=== PATIENT | female | born 1970 | race Caucasian/White ===

== ENCOUNTER 2020-11-17 16:48 | Outpatient (REF) | payer BC, SELFPAY | END 2020-11-17 16:49 | disposition home or self-care (01) | LOC: HO.LNP 16:48 | PROVIDERS: Visit Provider Hospitalist | DX: B34.9 Viral infection, unspecified (principal); Z20.822 Contact with and (suspected) exposure to COVID-19 | CPT/HCPCS: U0003; U0005 ==

== ENCOUNTER 2022-01-02 15:04 | Outpatient (REF) | payer OTHER, SELFPAY ==
[2022-01-02 18:08] LABS: CT PCR NOT DETECTED (Not Detect.); NG PCR NOT DETECTED (Not Detect.)
[2022-01-03 09:35] LABS: BV Int Neg Control Negative (Negative); BV Int Pos Control Positive (Positive)
[2022-01-07 23:27] LABS: HPV mRNA E6/E7 rflx Not Detected (Not Detected)
== END 2022-01-02 15:05 | disposition home or self-care (01) ==
LOC: HO.LAB 15:04
PROVIDERS: Visit Provider Advanced Practice Midwife
DX: Z01.419 Encounter for gynecological examination (general) (routine) without abnormal findings (principal); Z11.51 Encounter for screening for human papillomavirus (HPV); Z11.3 Encounter for screening for infections with a predominantly sexual mode of transmission
CPT/HCPCS: 87480; 87491; 87510; 87591; 87624; 87660; 88142

== ENCOUNTER 2022-01-09 14:08 | Outpatient (REF) | payer OTHER, SELFPAY ==
--- NOTE | ~2022-01-09 | MM_ITS ---
EXAMINATION: MM SCREENING DIGITAL BREAST TOMOSYNTHESIS, BILATERAL CLINICAL INFORMATION: Screening. Asymptomatic. There is no mention and previous history of left breast biopsy. The lifetime risk of breast cancer based on the Tyrer-Cuzick Model is 7.0%. COMPARISON: Mammography: None. TECHNIQUE: Digital breast tomosynthesis is performed in both the craniocaudal and mediolateral oblique views along with computer-aided detection (CAD). Synthesized 2D images are generated from the tomosynthesis. FINDINGS: There are scattered areas of fibroglandular density (ACR BI-RADS breast composition Category b). No suspicious right breast masses or region of architectural distortion or grouping of microcalcifications identified. About the upper outer aspect of the left breast, there are 2 regions of architectural distortion for which spot compression views are recommended. MM/MM tomosynthesis screening BI IMPRESSION: Left breast density for further evaluation as described. ASSESSMENT: BI-RADS 0: Incomplete - Need Additional Imaging Evaluation . RECOMMENDATION: 1. Additional views of the left breast. 2. Targeted ultrasound if warranted after review of the additional views. 3. Radiology department staff will contact the patient for additional imaging. This patient's information was entered into a reminder system with a target due date for their next mammogram.
== END 2022-01-09 14:09 | disposition home or self-care (01) ==
LOC: HO.MAMMO 14:08
PROVIDERS: Visit Provider Advanced Practice Midwife
DX: Z12.31 Encounter for screening mammogram for malignant neoplasm of breast (principal)
CPT/HCPCS: 77063; 77067

== ENCOUNTER 2022-01-24 10:58 | Outpatient (REF) | payer OTHER, SELFPAY ==
--- NOTE | ~2022-01-24 | MM_ITS ---
EXAMINATION: MM DIAGNOSTIC DIGITAL BREAST TOMOSYNTHESIS, LEFT CLINICAL INFORMATION: Recall from screening for question of asymmetric density mid 1:00 left breast. COMPARISON: Mammography: 01/09/2022; outside mammography 05/10/2020 and 11/17/2017 ([facility]). TECHNIQUE: Digital breast tomosynthesis is performed. 2D images are generated from the tomosynthesis. The following views are obtained: Spot CC, spot MLO. FINDINGS: There are scattered areas of fibroglandular density (ACR BI-RADS breast composition Category b). Additional views show no architectural abnormality or mass or developing density from prior outside studies. There are no significant changes. Additional comparison of the recent right mammography with prior outside studies also shows no significant changes. Results are discussed with the patient at time of visit. MM/MM tomosynthesis added views L IMPRESSION: Additional views show no architectural abnormality or developing density from prior outside study. ASSESSMENT: BI-RADS 1: Negative RECOMMENDATION: Routine annual mammography screening. This patient's information was entered into a reminder system with a target due date for their next mammogram.
== END 2022-01-24 10:59 | disposition home or self-care (01) ==
LOC: HO.MAMMO 10:58
PROVIDERS: Visit Provider Advanced Practice Midwife
DX: R92.8 Other abnormal and inconclusive findings on diagnostic imaging of breast (principal)
CPT/HCPCS: 77061; 77065

== ENCOUNTER → 2023-02-19 16:00 | Outpatient (BNV) | payer OTHER, SELFPAY | PROVIDERS: PCP Nurse Practitioner Family; Visit Provider Radiology Diagnostic Radiology | DX: Z12.31 Encounter for screening mammogram for malignant neoplasm of breast (principal) | CPT/HCPCS: 77063; 77067 ==

== ENCOUNTER 2023-02-19 16:05 | Outpatient (REF) | payer OTHER, SELFPAY | END 2023-02-19 16:06 | disposition home or self-care (01) | LOC: HO.MAMMO 16:05 | PROVIDERS: PCP Nurse Practitioner Family; Visit Provider Advanced Practice Midwife | DX: Z12.31 Encounter for screening mammogram for malignant neoplasm of breast (principal) | CPT/HCPCS: 77063; 77067 ==

== ENCOUNTER 2023-04-18 14:59 | Outpatient (REF) | payer OTHER, SELFPAY ==
[2023-04-18 15:21] LABS: Hematocrit 43.2 % (37.0-47.0); Hemoglobin 14.5 g/dl (12.0-16.0); Mean Corpuscular HGB Conc 33.6 g/dl (31.0-35.0); Mean Corpuscular Hemoglobin 33.1 pg (27.0-33.0); Mean Corpuscular Volume 98.6 fL (80.0-98.0); Mean Platelet Volume 10.6 fL (9.4-12.3); Platelet Count 267 X10*3/uL (160-400); Red Blood Count 4.38 X10*6/uL (4.20-5.50); Red Cell Distribution Width 13.3 % (11.0-16.0); White Blood Count 5.5 X10*3/uL (4.8-10.8)
[2023-04-18 15:47] LABS: Alanine Aminotransferase 8 U/L (0-31); Albumin Level 4.1 g/dL (3.5-5.0); Alkaline Phosphatase 72 U/L (39-117); Anion Gap 7 (12-20); Aspartate Amino Transferase 17 U/L (5-31); Bilirubin Total 0.8 mg/dL (0.0-1.0); Blood Urea Nitrogen 12 mg/dL (9-16); Calcium 9.5 mg/dL (8.4-10.2); Carbon Dioxide 31 mmol/L (22-29); Chloride 105 mmol/L (96-108); Estimated Glomerular Filt Rate > 60; Glucose Fasting 87 mg/dL (60-99); Iron 84 mcg/dL (30-160); Percent Iron Saturation 27 % (15-50); Potassium 3.9 mmol/L (3.3-5.1); Sodium 139 mmol/L (135-145); Total Iron Binding Capacity 311 mcg/dL (228-428); Total Protein 7.2 g/dL (6.5-8.0); Unsaturated Iron Binding 227 ug/dL
== END 2023-04-18 15:00 | disposition home or self-care (01) ==
LOC: HO.LAB 14:59
PROVIDERS: Physician Assistant; PCP Nurse Practitioner Family; Visit Provider Nurse Practitioner Family
DX: F32.A Depression, unspecified (principal); R53.83 Other fatigue; D50.9 Iron deficiency anemia, unspecified
CPT/HCPCS: 36415; 80053; 83540; 84443; 85027

== ENCOUNTER 2023-05-06 15:50 | Outpatient (AMB) | payer OTHER, SELFPAY ==
[2023-05-06 15:51] VITALS: BP 140/90; PULSE 74; BMI 22.7
--- NOTE | 2023-05-06 15:51 | MHC.PC.OV ---
Vital Signs 05/06/23 15:51 Height 5 ft 3 in Weight 128 lb 0.4 oz BMI 22.7 BP 140/90 H Blood Pressure Location Lt brachial Position Sitting Pulse 74 Pulse Source Pulse Oximeter Oxygen Delivery Method Room Air Intake Visit Reasons: PHYSICAL Intake Note: Patient is here today for a physical. Marketing Project Lead Required: No Allergies No Known Allergies Allergy (Verified 05/06/23 16:06) Medication List - Last Reconciled 05/06/23 by ESTUARDO Shearer bupropion HCl (Wellbutrin XL) 300 mg PO QAM cholecalciferol (vitamin D3) 325 mcg PO QWEEK COVID-19 test specimen collect As directed docusate sodium (Colace) 100 mg PO BID PRN ibuprofen 600 mg PO Q6H PRN lactobacillus combination no.9 (Adult 50 Plus Probiotic) 4,000 mmu cells PO DAILY multivitamin 1 tab PO DAILY norethindrone acetate 5 mg PO DAILY quetiapine (Seroquel) 25 mg PO BEDTIME PRN tranexamic acid 1,300 mg PO TID valacyclovir 1,000 mg PO DAILY 10 days Tobacco use date assessed: 05/06/23 Dental Screening Dental Screen Date: 05/06/23 Did you have a dental visit in the last 12 months?: Yes Did you have a dental problem in the last 6 months where you did not have access to dental care?: No Was dental information given to patient?: Patient has dentist HPI PHYSICAL HPI Details Patient is a 52-year-old female who presents today for physical exam. Medical history significant for depression, anxiety, constipation, insomnia, fatigue. Pap smear normal 12/2021 with [facility]. Mammogram normal 03/2023. Today we discussed patient's need for colon cancer screening-she is interested in a Cologuard. Reports tetanus vaccine in the last 10 years. Has therapist for her mental health. Reports cold hands and feet even in the summer, recent blood work results reviewed with the patient with no acute findings. Also reports hair loss for the past sometime, reports started taking hair and nails supplements. Reports postnasal drip since fall, did not use anything for this. No shortness of breath or chest pain. [facility] Medical History Insomnia Anxiety Depression Surgical History H/O dilation and curettage History of surgery on lower extremity Family History Paternal Uncle Colon cancer Mother No problems noted. Father No problems noted. Social History Housing: House Alcohol intake: current Alcohol intake frequency: holidays/special occasions only Patient Tobacco Use Status: Never used Tobacco service: No Current occupational status: employed (self) Cognitive needs: No Hearing needs: No Vision needs: No Female Reproductive History Menstrual Age of Menarche: 14 Questionnaire PHQ-9 Over the last 2 weeks, how often have you been bothered by any of the following problems? 1. Little interest or pleasure in doing things: not at all 2. Feeling down, depressed, or hopeless: not at all 3. Trouble falling or staying asleep, or sleeping too much: not at all 4. Feeling tired or having little energy: not at all 5. Poor appetite or overeating: not at all 6. Feeling bad about yourself - or that you are a failure or have let yourself or your family down: not at all 7. Trouble concentrating on things, such as reading the newspaper or watching television: not at all 8. Moving or speaking so slowly that other people could have noticed. Or the opposite - being so fidgety or restless that you have been moving around a lot more than usual: not at all 9. Thoughts that you would be better off or of hurting yourself in some way: not at all Total score: 0 Depression Screening Interpretation: Negative Depression Screening Done: Yes 32777 - PHQ-9 Billing: Yes Source: Developed by Drs. Marcelo Allred, Sarah Mckeon, Demar Hernandez and colleagues, with an educational annie from [employer]. Thrive Questionnaire Date Thrive assessed: 04/24/22 AUDIT C Alcohol Use Questionnaire (AUDIT-C) 1. How often do you have a drink containing alcohol?: Monthly or less 2. How many drinks containing alcohol do you have on a typical day when you are drinking?: 1 or 2 3. How often do you have six or more drinks on one occasion?: Never Total Score: 1 Score Reviewed/Action Taken: No A[place]RI[place]-7 AMB Questionnaire A[place]RIA-7 Date ALEXANDRIA - 7 assessed: 05/06/23 Feeling nervous, anxious, or on edge: 0 = Not at all Not being able to stop or control worryin = Not at all Worrying too much about different things: 0 = Not at all Trouble relaxin = Not at all Being so restless that it is hard to sit still: 0 = Not at all Becoming easily annoyed or irritable: 0 = Not at all Feeling afraid as if something awful might happen: 0 = Not at all Total [place]-7 score (0-4 normal; 5-9 mild; 10-14 moderate; 15-21 severe): 0 Source: Developed by Drs. Marcelo Allred, Sarah Mckeon, Demar Hernandez and colleagues, with an educational annie from [employer]. A[place]RIA-7 Assessment Billing A[place]RIA-7 Assessment Tool: [place]RIA-7 Assessment 43911 Review of Systems Const Denies body aches, Denies chills, Reports fatigue, Denies fever(s) and Denies headache(s) Eyes Denies change in vision ENT Denies dizziness, Denies otalgia, Denies headache(s), Denies nasal discharge, Reports post nasal drip, Denies sinus pain and Denies sore throat Card Denies chest pain, Denies edema, Denies lightheadedness and Denies dyspnea Resp Denies cough, Denies dyspnea and Denies wheezing GI Denies abdominal pain, Reports constipation, Denies diarrhea, Denies nausea and Denies vomiting Denies dysuria Musc Reports as per HPI, Denies myalgias, Denies arthralgias, Denies joint swelling, Denies numbness and Denies tingling Skin/Breast Denies rash Neuro Denies dizziness, Denies headache(s), Denies numbness and Denies tingling Endo Reports fatigue Aller/Immun Denies wheezing Physical exam (Primary Care) Vital Signs: Last Vital Signs Pulse 74 05/06/23 15:51 BP 140/90 H 05/06/23 15:51 Oxygen Delivery Method Room Air 05/06/23 15:51 BMI result Body Mass Index 22.7 Tobacco/Smoking Status: Tobacco use Status Tobacco use date assessed 05/06/23 05/06/23 15:52 Patient Tobacco Use Status Never used Tobacco 05/06/23 15:52 PHQ-9: PHQ-9 Score PHQ-9: Total score 0 05/06/23 16:04 Depression Screening Interpretation: Negative Thrive Assessment: Date of Thrive Assessment Date Thrive assessed 04/24/22 05/06/23 15:52 Const General: cooperative and no acute distress Orientation/consciousness: patient oriented x3 HENMT Head: Yes normocephalic and Yes atraumatic Ears: TM's normal bilaterally Face and sinus: Yes sinuses nontender Mouth: oropharynx normal and moist mucous membranes Throat: Yes posterior oropharynx normal Eyes General: appearance normal, both eyes and all related structures Pupils: Equal, round and reactive pupils present EOM: EOMs intact bilaterally Neck Neck: Yes normal visual inspection, Yes full ROM and Yes no lymphadenopathy Thyroid: Thyroid normal Resp Effort & Inspection: normal respiratory effort and able to speak in complete sentences Auscultation: clear to auscultation bilaterally, no crackles, no rales, no rhonchi and no wheezes Cardio Rate: regular rate Rhythm: regular rhythm Heart sounds: S1 normal heart sound present, S2 normal heart sound present and no murmurs GI Palpation (GI): Soft to palpation, not firm, nontender, no guarding, not rigid and no hepatosplenomegaly Auscultation: normal bowel sounds General: No CVA tenderness Back/Spine/Pelvis Back: No CVA tenderness Skin General skin exam: no rashes or lesions noted Neuro General: patient oriented x3 Cranial nerves: Yes Equal, round and reactive pupils present Gait exam (Neuro): Normal gait present Extrem General: Yes full ROM and No edema Assessment and Plan Assessment & Plan (1) Postnasal drip: Code(s): R09.82 - Postnasal drip Plan: Start Zyrtec daily (2) Cold extremities: Code(s): R20.9 - Unspecified disturbances of skin sensation Plan: Vascular provider referral for an evaluation and treatment (3) Adult general medical exam: Comment: Celio GUERREROD. No Covid-19 IZs. Code(s): Z00.00 - Encounter for general adult medical examination without abnormal findings Plan: Repeat in 1 year (4) Insomnia: Code(s): G47.00 - Insomnia, unspecified Plan: Stable with Seroquel at bedtime p.r.n. Sleep hygiene (5) Screening for colon cancer: Code(s): Z12.11 - Encounter for screening for malignant neoplasm of colon (6) Constipation: Code(s): K59.00 - Constipation, unspecified Plan: Increase dietary fiber and fluid consumption Refill sent on Colace p.r.n. (7) Anxiety: Code(s): F41.9 - Anxiety disorder, unspecified Plan: Continue to follow-up with therapist Continue Wellbutrin (8) Depression: Code(s): F32.A - Depression, unspecified Qualifiers: Depression Type: other depression Qualified Code(s): F32.89 - Other specified depressive episodes Plan: Same as above Orders: Orders Lipid Panel Today Z00.00 - Encounter for general adult medical examination without abnormal findings Vitamin D 25-OH Total Today F41.9 - Anxiety disorder, unspecified Vitamin B12 and Folate Today F41.9 - Anxiety disorder, unspecified Referrals Cologuard Test Z12.11 - Encounter for screening for malignant neoplasm of colon, Z12.12 - Encounter for screening for malignant neoplasm of rectum Vascular Surgery Referral R20.9 - Unspecified disturbances of skin sensation Medications: New cetirizine (Zyrtec) 10 mg PO DAILY 30 tabs 1RF R09.82 - Postnasal drip Refilled bupropion HCl (Wellbutrin XL) 300 mg PO QAM 30 tabs 2RF F32.A - Depression, unspecified, F41.9 - Anxiety disorder, unspecified quetiapine (Seroquel) 25 mg PO BEDTIME PRN 30 tabs 2RF insomnia F41.9 - Anxiety disorder, unspecified, G47.00 - Insomnia, unspecified docusate sodium (Colace) 100 mg PO BID PRN 30 caps 0RF constipation K59.00 - Constipation, unspecified Coding Level of Care Code Est Pt Prev Care 40-64y(12544) Diagnoses Postnasal drip R09.82 Cold extremities R20.9 Adult general medical exam Z00.00 Insomnia G47.00 Screening for colon cancer Z12.11 Constipation K59.00 Anxiety F41.9 Other depression F32.89 Depression Type: other depression Additional Codes ALEX[place]RIA-7 Assessment Billing - ALEAXNDRIA-7 Assessment Tool: [place]RIA-7 Assessment 09366 ([id number])
== END 2023-05-06 16:28 | disposition home or self-care (01) ==
PROVIDERS: Visit Provider Nurse Practitioner Family
DX: Z00.00 Encounter for general adult medical examination without abnormal findings (principal); R09.82 Postnasal drip; R20.9 Unspecified disturbances of skin sensation; F32.89 Other specified depressive episodes; G47.00 Insomnia, unspecified; Z12.11 Encounter for screening for malignant neoplasm of colon; K59.00 Constipation, unspecified; F41.9 Anxiety disorder, unspecified
CPT/HCPCS: 99396

== ENCOUNTER 2024-02-26 15:34 | Outpatient (REF) | payer OTHER, SELFPAY ==
--- NOTE | ~2024-02-26 | MM_ITS ---
EXAMINATION: MM SCREENING DIGITAL BREAST TOMOSYNTHESIS, BILATERAL CLINICAL INFORMATION: Screening. Asymptomatic. COMPARISON: Mammography: Comparison is made with available priors TECHNIQUE: Digital breast mammography with tomosynthesis is performed in both the craniocaudal and mediolateral oblique views along with computer-aided detection (CAD). FINDINGS: There are scattered areas of fibroglandular density (ACR BI-RADS breast composition Category b). There are no significant masses, abnormal calcifications, or other abnormalities. MM/MM tomosynthesis screening BI IMPRESSION: No mammographic evidence of malignancy. ASSESSMENT: BI-RADS BI-RADS 1 - Negative RECOMMENDATION: Routine annual mammography screening. 1 year F/U This examination should not preclude the clinical evaluation of a suspicious palpable abnormality. This patient's information was entered into a reminder system with a target due date for their next mammogram. Electronically signed by: Nisha Zee DO 03/10/2024 11:58 AM EDT
== END 2024-02-26 15:35 | disposition home or self-care (01) ==
LOC: HO.MAMMO 15:34
PROVIDERS: PCP Internal Medicine; Visit Provider Internal Medicine
DX: Z12.31 Encounter for screening mammogram for malignant neoplasm of breast (principal)
CPT/HCPCS: 77063; 77067

== ENCOUNTER → 2024-02-26 16:00 | Outpatient (BNV) | payer OTHER, SELFPAY | PROVIDERS: PCP Internal Medicine; Visit Provider Internal Medicine | DX: Z12.31 Encounter for screening mammogram for malignant neoplasm of breast (principal) | CPT/HCPCS: 77063; 77067 ==

== ENCOUNTER 2024-05-11 16:16 | Outpatient (AMB) | payer OTHER, SELFPAY ==
--- NOTE | 2024-05-11 16:24 | A.OFFPC_ITS ---
Vital Signs 05/11/24 16:25 Height 5 ft 3 in Weight 133 lb BMI 23.6 BP 124/76 Blood Pressure Location Lt brachial Position Sitting Pulse 82 Pulse Source Pulse Oximeter Pulse Oximetry (%) 98 Oxygen Delivery Method Room Air Intake Visit Reasons: pe Allergies No Known Allergies Allergy (Verified 05/11/24 16:25) Medication List - Last Reconciled 05/11/24 by Michelle Dorado MD biotin (Hair, Skin and Nails (biotin)) mcg PO bupropion HCl XL (Wellbutrin XL) 300 mg PO QAM cholecalciferol (vitamin D3) 325 mcg PO QWEEK COVID-19 test specimen collect As directed ibuprofen 600 mg PO Q6H PRN quetiapine (Seroquel) 25 mg PO BEDTIME PRN valacyclovir 1,000 mg PO DAILY 10 days Tobacco use date assessed: 05/11/24 Dental Screening Dental Screen Date: 05/11/24 Did you have a dental visit in the last 12 months?: Yes Did you have a dental problem in the last 6 months where you did not have access to dental care?: No Was dental information given to patient?: Patient has dentist HPI pe HPI Details 53-year-old female with a history of gen eralized anxiety disorder coming in for physical exam. This is the 1st time I am seeing the patient. occ nausea PFSH Medical History (Updated 05/11/24 @ 18:26 by Michelle Dorado MD) Depression Viral syndrome Well woman exam with routine gynecological exam Potential exposure to STD Perimenopause Encounter for screening mammogram for malignant neoplasm of breast Anxiety Burning with urination Insomnia Adult general medical exam Headache Genital herpes Fatigue Cold extremities Postnasal drip Insomnia Anxiety Depression Surgical History H/O dilation and curettage History of surgery on lower extremity Family History (Updated 05/11/24 @ 17:03 by Michelle Dorado MD) Paternal Uncle Colon cancer Mother Melanoma Father No problems noted. Maternal Grandfather Heart attack Social History (Updated 05/11/24 @ 17:03 by Michelle Dorado MD) Housing: House Alcohol intake: current Alcohol intake frequency: holidays/special occasions only Comment: once a week 2 drinks Patient Tobacco Use Status: Never used Tobacco Tobacco use type: Cigarette e-Cigarette/Vaping Use: Never Used Second Hand Smoke Exposure: No service: No Current occupational status: employed (self) Cognitive needs: No Hearing needs: No Vision needs: No Female Reproductive History Menstrual Age of Menarche: 14 Questionnaire PHQ-9 Over the last 2 weeks, how often have you been bothered by any of the following problems? 1. Little interest or pleasure in doing things: not at all 2. Feeling down, depressed, or hopeless: not at all 3. Trouble falling or staying asleep, or sleeping too much: several days 4. Feeling tired or having little energy: several days 5. Poor appetite or overeating: not at all 6. Feeling bad about yourself - or that you are a failure or have let yourself or your family down: not at all 7. Trouble concentrating on things, such as reading the newspaper or watching television: not at all 8. Moving or speaking so slowly that other people could have noticed. Or the opposite - being so fidgety or restless that you have been moving around a lot more than usual: not at all 9. Thoughts that you would be better off or of hurting yourself in some way: not at all Total score: 2 Source: Developed by Drs. Marcelo Allred, Sarah Mckeon, Demar Hernandez and colleagues, with an educational annie from [employer]. Thrive Questionnaire Date Thrive assessed: 05/11/24 I am a: Patient What is your living situation today?: I have a steady place to live Within the past 12 months, did the food you bought not last and you didn't have the money to get more?: Never true Within the past 12 months, did you worry whether your food would run out before you got money to buy more?: Never true Do you have trouble paying for medicines?: No Do you have trouble getting transportation to medical appointments?: No Do you have trouble paying your heating and electricity bill?: No Do you have trouble taking care of your child, family member or friend?: No Do you have trouble with day-to-day activities such as bathing, preparing meals, shopping, managing finances, etc.?: No Are you currently unemployed and looking for a job?: No Are you interested in more education?: Yes Please select the resources that you would like help with: None Currently or been in a relationship where the following occur: No concerns reported THRIVE Score: 0 AUDIT C Alcohol Use Questionnaire (AUDIT-C) 1. How often do you have a drink containing alcohol?: 2-4 times a month 2. How many drinks containing alcohol do you have on a typical day when you are drinking?: 1 or 2 3. How often do you have six or more drinks on one occasion?: Never Total Score: 2 ALEXANDRIA-7 AMB Questionnaire ALEX[place]RIA-7 Date ALEX[place]RIA - 7 assessed: 05/11/24 Feeling nervous, anxious, or on edge: 1 = Several days Not being able to stop or control worryin = Several days Worrying too much about different things: 1 = Several days Trouble relaxin = Several days Being so restless that it is hard to sit still: 0 = Not at all Becoming easily annoyed or irritable: 1 = Several days Feeling afraid as if something awful might happen: 1 = Several days Total A[place]-7 score (0-4 normal; 5-9 mild; 10-14 moderate; 15-21 severe): 6 Source: Developed by Drs. Marcelo Allred, Sarah Mckeon, Demar Hernandez and colleagues, with an educational annie from [employer]. Review of Systems Const Denies poor appetite and Denies weakness Eyes Denies no additional complaints ENT Reports Normal hearing present, Denies dizziness, Denies nasal congestion, Denies tinnitus and Denies sore throat Card Denies chest pain, Denies syncope, Denies rapid heart rate and Denies dyspnea Resp Denies cough and Denies dyspnea GI Denies change in stool character, Reports constipation, Denies diarrhea, Denies nausea and Denies vomiting Denies urinary frequency, Denies difficulty voiding and Denies dysuria Neuro Reports Normal hearing present, Denies confusion, Denies dizziness, Denies syncope and Denies weakness Psych Denies confusion Physical exam (Primary Care) Vital Signs: Last Vital Signs Pulse 82 05/11/24 16:25 BP 124/76 05/11/24 16:25 Pulse Ox 98 05/11/24 16:25 Oxygen Delivery Method Room Air 05/11/24 16:25 BMI result Body Mass Index 23.6 Tobacco/Smoking Status: Tobacco use Status Tobacco use date assessed 05/11/24 05/11/24 16:35 Patient Tobacco Use Status Never used Tobacco 05/11/24 17:03 Tobacco use type Cigarette 05/11/24 17:03 e-Cigarette/Vaping Use Never Used 05/11/24 17:03 PHQ-9: PHQ-9 Score PHQ-9: Total score 2 05/11/24 16:47 Thrive Assessment: Date of Thrive Assessment Date Thrive assessed 05/11/24 05/11/24 16:35 Currently or been in a relationship where the following occur: No concerns reported Const General: No confusion Orientation/consciousness: No confusion HENMT Head: Yes normocephalic Ears: external ears normal and TM's normal bilaterally Face and sinus: Yes normal facial exam Mouth: moist mucous membranes Throat: Yes tonsils normal Eyes Conjunctivae: conjunctivae normal Pupils: Equal, round and reactive pupils present and Pupil accommodation reflex normal Direct Ophthalmoscopy: normal light reflex Neck Neck: No lymphadenopathy Thyroid: Thyroid normal Chest Chest palpation & inspection: normal inspection of the chest Resp Effort & Inspection: normal respiratory effort and no audible wheezes Auscultation: clear to auscultation bilaterally, no crackles, no wheezes and lung sounds not diminished Cardio Rate: regular rate Rhythm: regular rhythm Peripheral pulses: radial pulses present and dorsalis pedis present GI Palpation (GI): no masses Auscultation: normal bowel sounds and normoactive bowel sounds Rectal Exam - Female: deferred Skin General skin exam: no rashes or lesions noted Rashes: no rashes Neuro General: No confusion Cranial nerves: Yes Equal, round and reactive pupils present and Yes Normal hearing present Cognition (Neuro): normal cognition Gait exam (Neuro): Normal gait present Motor exam (neuro): 5/5 motor strength present throughout Deep tendon reflexes (DTR's): Right brachioradialis reflex intensity grade: 2+, Left brachioradialis reflex intensity grade: 2+, Right patellar reflex intensity grade: 2+ and Left patellar reflex intensity grade: 2+ Extrem General: No edema Coding Level of Care Code Est Pt Prev Care 40-64y(01077) Diagnoses Annual physical exam Z00.00 Generalized anxiety disorder F41.1 Screening for colon cancer Z12.11 Laceration of left little finger without foreign body without damage to nail, sequela S61.217S Encounter type: sequela Finger: little finger Damage to nail status: without damage Foreign body presence: without foreign body Laterality: left Assessment & Plan Assessment & Plan (1) Annual physical exam: Code(s): Z00.00 - Encounter for general adult medical examination without abnormal findings Category: Medical Plan: Patient is advised to eat healthy, keep well hydrated, keep active and have adequate sleep. (2) Generalized anxiety disorder: Comment: [facility] Code(s): F41.1 - Generalized anxiety disorder Category: Medical Plan: Continue with therapy presently (3) Screening for colon cancer: Code(s): Z12.11 - Encounter for screening for malignant neoplasm of colon Category: Medical Plan: Reminded about colon cancer screening (4) Finger laceration: Comment: Left 5th finger Code(s): S61.219A - Laceration without foreign body of unspecified finger without damage to nail, initial encounter Category: Medical Qualifiers: Encounter type: sequela Finger: little finger Damage to nail status: without damage Foreign body presence: without foreign body Laterality: left Qualified Code(s): S61.217S - Laceration without foreign body of left little finger without damage to nail, sequela Plan: Stable Orders: Referrals Cologuard Test Z12.11 - Encounter for screening for malignant neoplasm of colon, Z12.12 - Encounter for screening for malignant neoplasm of rectum
[2024-05-11 16:25] VITALS: BP 124/76; PULSE 82; O2SAT 98; BMI 23.6
== END 2024-05-11 17:26 | disposition home or self-care (01) ==
PROVIDERS: PCP Internal Medicine; Visit Provider Internal Medicine
DX: Z00.00 Encounter for general adult medical examination without abnormal findings (principal); F41.1 Generalized anxiety disorder; Z12.11 Encounter for screening for malignant neoplasm of colon; S61.217S Laceration without foreign body of left little finger without damage to nail, sequela

== ENCOUNTER → 2024-05-11 16:16 | Outpatient (BNVA) | payer OTHER, SELFPAY | PROVIDERS: PCP Internal Medicine; Visit Provider Internal Medicine | DX: Z00.00 Encounter for general adult medical examination without abnormal findings (principal); F41.1 Generalized anxiety disorder; S61.217S Laceration without foreign body of left little finger without damage to nail, sequela | CPT/HCPCS: 96127; 99396 ==

== ENCOUNTER 2024-06-23 15:00 | Outpatient (AMB) | payer OTHER, SELFPAY ==
--- NOTE | 2024-06-23 15:01 | MHC.OFFVIS ---
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 She is doing well with customer support associate concerns. Cycles skipping many months, never over 12. She remembers LMP last summer. Currently sexually active. Denies any vaginal dryness or irritation. STI testing offered; she declined. Attempting to eat a healthy diet with calcium and vitamin D and stays active with exercise active at work. Last pap smear; 2021. Last mammogram; 2023. Colonoscopy is UTD. Denies any family history of breast, ovarian or colon cancer. [facility] Medical History (Updated 06/23/24 @ 16:16 by Noa Kauffman CNM) Depression Viral syndrome Potential exposure to STD Perimenopause Encounter for screening mammogram for malignant neoplasm of breast Anxiety Burning with urination Insomnia Adult general medical exam Headache Genital herpes Fatigue Cold extremities Postnasal drip Insomnia Anxiety Depression Surgical History H/O dilation and curettage History of surgery on lower extremity Family History Paternal Uncle Colon cancer Mother Melanoma Father No problems noted. Maternal Grandfather Heart attack Social History Housing: House Alcohol intake: current Alcohol intake frequency: holidays/special occasions only Comment: once a week 2 drinks Patient Tobacco Use Status: Never used Tobacco Tobacco use type: Cigarette e-Cigarette/Vaping Use: Never Used Second Hand Smoke Exposure: No service: No Current occupational status: employed (self) Cognitive needs: No Hearing needs: No Vision needs: No Female Reproductive History Menstrual Age of Menarche: 14 Duration of menses: 6-7 days Date of last menstrual period: 06/15/24 Total pregnancies: 3 Full term: 2 Number of Living Children: 2 Ab spontaneous: 1 Date of last pap smear: 01/02/22 (neg pap and hpv) Date of Mammogram: 02/26/24 (Birad 1) Physical Exam Vital Signs: Last Vital Signs BP 120/72 06/23/24 15:07 BMI result Body Mass Index 23.2 Assessment & Plan Assessment & Plan (1) Well woman exam with routine gynecological exam: Code(s): Z01.419 - Encounter for gynecological examination (general) (routine) without abnormal findings Category: Medical Plan Discussed: Current recommendations for pap smears per ASCCP guidelines. Breast awareness, periodic self breast exams and yearly mammogram. Maintain a healthy lifestyle, well balanced diet and routine exercise. Menopause verses perimenopause. Menopause is definitive of 1 year of no menses or 12 months in succession. Report any abnormal uterine bleeding in example prolonged episodes, or short intervals less than 24 days. [email or web address] information provided. Patient verbalizes understanding and agrees to the plan of care. She was given opportunity to ask questions and all questions were answered to the best of my ability. RTO in 1 year for annual customer support associate exam. This note is constructed using voice recognition software. While every effort has been made to ensure accuracy, network consultant errors may have been included. Coding Level of Care Code Est Pt Prev Care 40-64y(22345) Diagnoses Well woman exam with routine gynecological exam Z01.419
[2024-06-23 15:07] VITALS: BP 120/72; BMI 23.2
== END 2024-06-23 16:04 | disposition home or self-care (01) ==
LOC: HO.HWS 15:00
PROVIDERS: PCP Internal Medicine; Visit Provider Advanced Practice Midwife
DX: Z01.419 Encounter for gynecological examination (general) (routine) without abnormal findings (principal)
CPT/HCPCS: 99396; 99459

== ENCOUNTER → 2024-06-23 15:00 | Outpatient (BNVA) | payer OTHER, SELFPAY | PROVIDERS: PCP Internal Medicine; Visit Provider Advanced Practice Midwife | DX: Z01.419 Encounter for gynecological examination (general) (routine) without abnormal findings (principal) | CPT/HCPCS: 99396; 99459 ==

== ENCOUNTER 2025-01-17 10:49 | Outpatient (AMB) | payer OTHER, SELFPAY ==
--- NOTE | 2025-01-17 10:52 | MHC.OFFWIV ---
Intake Vital Signs 01/17/25 10:53 Height 5 ft 3 in Weight 135 lb 2 oz BMI 23.9 BP 122/70 Blood Pressure Location Rt brachial Position Sitting Pulse 80 Pulse Source Pulse Oximeter Temp 98.2 F Temp Source Oral Pulse Oximetry (%) 98 Oxygen Delivery Method Room Air Intake Visit Reasons: EP-sinus infection, rt ear pain, chills Patient Tobacco Use Status: Never used Tobacco Brand Manager Required: No Is last menstrual period known: Yes Last menstrual period: 07/12/24 Post menopausal: No Patient : No Allergies No Known Allergies Allergy (Verified 01/17/25 10:56) Do you need a note to return to daycare/school/sports/work: Yes HPI HPI Comments History of Present Illness Details 54 y/o Female patient who presents to the walk in clinic with c/o URI symptoms since last Friday. Reports nasal congestion, right ear pain/pressure and right Jaw pain. Denies fevers, chills, nausea or vomiting. [facility] Medical History (Updated 01/17/25 @ 11:12 by Lexi Guevara NP) Sinusitis Depression Viral syndrome Potential exposure to STD Perimenopause Encounter for screening mammogram for malignant neoplasm of breast Anxiety Burning with urination Insomnia Adult general medical exam Headache Genital herpes Fatigue Cold extremities Postnasal drip Insomnia Anxiety Depression Surgical History H/O dilation and curettage History of surgery on lower extremity Family History Paternal Uncle Colon cancer Mother Melanoma Father No problems noted. Maternal Grandfather Heart attack Social History Housing: House Alcohol intake: current Alcohol intake frequency: holidays/special occasions only Comment: once a week 2 drinks Patient Tobacco Use Status: Never used Tobacco Tobacco use type: Cigarette e-Cigarette/Vaping Use: Never Used Second Hand Smoke Exposure: No Patient : No service: No Current occupational status: employed Cognitive needs: No Hearing needs: No Vision needs: No Female Reproductive History Menstrual Age of Menarche: 14 Date of last menstrual period: 07/12/24 Review of Systems Const All systems reviewed & are unremarkable except as noted in HPI and below Physical Exam Vital Signs: Last Vital Signs Temp 98.2 F 01/17/25 10:53 Pulse 80 01/17/25 10:53 BP 122/70 01/17/25 10:53 Pulse Ox 98 01/17/25 10:53 Oxygen Delivery Method Room Air 01/17/25 10:53 BMI result Body Mass Index 23.9 Const General: no acute distress Nutritional Appearance: well nourished Orientation/consciousness: patient oriented x3 HEENT Head: Yes normocephalic Ears: external ears normal and TM abnormal with fluid behind the TM bilateral General nose exam: Normal external nose present and Abnormal mucous membranes and turbinates present boggy and erythematous Face and sinus: Yes sinuses nontender Mouth: moist mucous membranes Throat: Yes uvula midline Resp Effort & Inspection: normal respiratory effort Auscultation: clear to auscultation bilaterally, no crackles, no rales, no rhonchi and no wheezes Cardio Heart sounds: S1 normal heart sound present and S2 normal heart sound present Neuro General: patient oriented x3 Assessment & Plan Assessment & Plan (1) Sinusitis: Code(s): J32.9 - Chronic sinusitis, unspecified Qualifiers: Chronicity: acute Recurrence: not specified as recurrent Sinusitis location: maxillary Qualified Code(s): J01.00 - Acute maxillary sinusitis, unspecified Plan: Zyrtec BID for few days. Flonase nasal [place]. No signs of bacterial infection at this point. RTC if not better. Medications: New fluticasone furoate 27.5 mcg/actuation (Flonase Sensimist) 1 spray intranasal BID 27.3 mL 0RF J01.00 - Acute maxillary sinusitis, unspecified Changed From cetirizine (Zyrtec) 10 mg PO DAILY 90 tabs 1RF J01.00 - Acute maxillary sinusitis, unspecified To cetirizine (Zyrtec) TAKE DIRECTED 10 mg PO DAILY 30 tabs 0RF J01.00 - Acute maxillary sinusitis, unspecified Coding Level of Care Code Est Pt Level 4 (86153) Diagnoses Acute maxillary sinusitis, recurrence not specified J01.00 Chronicity: acute Recurrence: not specified as recurrent Sinusitis location: maxillary Time Spent (min) 20
[2025-01-17 10:53] VITALS: BP 122/70; PULSE 80; TEMP 36.8; O2SAT 98; BMI 23.9
--- OUTSIDE RECORDS SUMMARY | 2025-01-17 11:31 | XMS_ITS ---
Author Name [facility] Organization Unknown Care Team Organization Name Specialty Phone Email Start Date End Da te [facility] 06/17/2022 024
== END 2025-01-17 11:39 | disposition home or self-care (01) ==
PROVIDERS: PCP Internal Medicine; Visit Provider Nurse Practitioner Family
DX: J01.00 Acute maxillary sinusitis, unspecified (principal)

== ENCOUNTER → 2025-01-17 10:49 | Outpatient (BNVA) | payer OTHER, SELFPAY | PROVIDERS: PCP Internal Medicine; Visit Provider Nurse Practitioner Family | DX: R68.84 Jaw pain (principal); J01.00 Acute maxillary sinusitis, unspecified | CPT/HCPCS: 99212 ==

== ENCOUNTER 2025-03-03 15:13 | Outpatient (REF) | payer OTHER, SELFPAY ==
--- OUTSIDE RECORDS SUMMARY | 2025-03-03 19:26 | XMS_ITS | Clinical Summary ---
Author Organization [facility] Address [address] [place] [id number] Phone Care Team Providers Care Stock Grader Name Role Phone Pcp, Unknown Primary Care Provider Unavailabl e Allergies Active Allergy Reactions Criticality Noted Date Comments Prednisone 04/26/2024 Medications BUPROPION HCL ORAL Take by mouth. Active ibuprofen (ADVIL,MOTRIN) 600 MG tablet Take 1 tablet (600 mg total) by mouth every 6 (six) hours as needed for pain (specific location in comments). 20 tablet 04/26/2024 Active Immunizations Immunization Administration Dates Next Due Tdap 04/26/2024 Social History Tobacco Use Types Packs/Day Years Used Date Smoking Tobacco: Never Smokeless Tobacco: Never Tobacco Cessation:Counseling Given: Not Answered Alcohol Use Standard Drinks/Week Comments Yes 0 (1 standard drink = 0.6 oz pur e alcohol) Education Answer Date Recorded Are you interested in more education? Not on emily e 04/26/2024 Are you concerned about learning? Not on file 04/26/2024 No 04/26/2024 No 04/26/2024 Digital Access Answer Date Recorded No 04/26/2024 No 04/26/2024 Reliable internet access at home? Not on file 04/26/2024 Device with a working camera? Not on file Intimate Partner Violence Answer Date R ecorded Are you denied basic needs s uch as food, clothing, or medical care? No 04/26/2024 In the past 12 months have y ou been in a relationship with a person who hurts, threatens, or tries to control you? No 04/26/2024 Are you denied basic needs s uch as food, clothing, or medical care? No 04/26/2024 In the past 12 months have y ou been in a relationship with a person who hurts, threatens, or tries to control you? No 04/26/2024 Comments Unknown Sex and Gender Information Value Date Recorded Sex Assigned at Female 04/26/2024 10:32 AM EST Legal Sex Female 10:29 AM EST Gender Identity Female 04/26/2024 10:32 AM EST Sexual Orientation Straight 04/26/2024 10 :32 AM EST Last Filed Vital Signs Vital Sign Reading Time Taken Comments Blood Pressure 159/71 04/26/2024 10:36 AM EST Pulse 64 04/26/2024 10:36 AM EST Temperature 36.7 C (98.1 F) 04/26/2024 10:36 AM EST Respiratory Rate 16 04/26/2024 10:36 AM EST Oxygen Saturation 100% 04/26/2024 10:36 AM EST Inhaled Oxygen Concentration - - Weight 61 kg (134 lb 7.7 oz) 04/26/2024 10:36 AM EST Height 157.5 cm (5' 2 ) 04/26/2024 10:36 AM EST Body Mass Index 24.6 04/26/2024 10:36 AM EST Plan of Treatment Health Maintenance Due Date Last Done Comments LIPID PANEL 1971 DEPRESSION SCREENING 1983 HEPATITIS C SCREENING 08/24/1989 HIV ONE-TIME SCREENING (18-6 5 YEARS) 08/24/1989 PAP SMEAR 08/24/1992 MAMMOGRAM 2011 COLOGUARD 08/24/2016 COLONOSCOPY 08/24/2016 COLORECTAL CANCER SCREENING 08/24/2016 FIT TEST 08/24/2016 FOBT 08/24/2016 SIGMOIDOSCOPY 08/24/2016 VIRTUAL COLONOSCOPY 08/24/2016 PNEUMOCOCCAL VACCINES (50+ y ears) (1 of 1 - PCV) 08/24/2021 ZOSTER VACCINES (1 of 2) 08/24/2021 INFLUENZA VACCINE (#1) 2025 COVID-19 VACCINE ( - 2023-2 5 season) 2025 Adult Td,Tdap Booster 04/26/2034 04/26/2024 SMOKING STATUS SCREENING (On ce After 26 Yrs) Completed 04/26/2024 HEPATITIS A VACCINES Aged Out No long er eligible based on patient's age to complete this topic HIB VACCINES Aged Out No longer eligi ble based on patient's age to complete this topic MENINGOCOCCAL VACCINES (ACWY) Aged Out No longer eligible based on patient's age to complete this topic MENINGOCOCCAL VACCINES (B) Aged Out N o longer eligible based on patient's age to complete this topic Medical Devices Not on file [place] [address] [place] [address] [place] [address] [place] [address] [place] [address] [place] [address] [place] [address] [place] [address] [facility] Care Teams Stock Grader Relationship Specialty Start Date End Date Pcp, Unknown PCP - General 04/26/24 Additional Source Comments The information contained in this document represents components of the legal health record. It is not the complete legal health record.[facility]
== END 2025-03-03 15:14 | disposition home or self-care (01) ==
LOC: HO.MAMMO 15:13
PROVIDERS: PCP Internal Medicine; Visit Provider Internal Medicine
DX: Z12.31 Encounter for screening mammogram for malignant neoplasm of breast (principal)
CPT/HCPCS: 77063; 77067

== ENCOUNTER → 2025-03-03 16:00 | Outpatient (BNV) | payer OTHER, SELFPAY | PROVIDERS: PCP Internal Medicine; Visit Provider Internal Medicine | DX: Z12.31 Encounter for screening mammogram for malignant neoplasm of breast (principal) | CPT/HCPCS: 77063; 77067 ==